=== PATIENT | female | born 2000 | race African-American/Black ===

== ENCOUNTER 2024-05-24 12:04 | Emergency (ER) | payer OTHER, SELFPAY ==
--- NOTE | 2024-05-24 12:06 | ED_ITS ---
HPI - Female Genitourinary General Chief complaint: Urogenital-Female Stated complaint: STD testing Time Seen by Provider: 05/24/24 12:06 Source: patient Mode of arrival: ambulatory Limitations: no limitations History of Present Illness HPI Narrative: Florencia is a 23-year-old female patient presenting to the clinic today with complaints vaginal discharge and vaginal irritation. She reports symptoms have been going on for approximately 1 week. Was tested on May 02 for STIs by her OBGYN and was negative. Last intercourse was that same day-May 02 after having STI testing completed. Thinks she may have used a different detergent on her underwear. States she believes she is in a heterosexual monogamous relationship. Last menstrual period was over this past week. History of chlamydia, gonorrhea, and bacterial vaginosis in the past. Related Data Allergies Allergy/AdvReac Type Severity Reaction Status Date / Time No Known Allergies Allergy Verified 05/24/24 12:34 Review of Systems Review of Systems: Pertinent positives per HPI. Patient denies any fever, chills, rash, headache, visual changes, dizziness, cough, runny nose, sore throat, shortness of breath, chest pain, palpitations, nausea, vomiting, diarrhea, constipation, abdominal pain, or any urinary issues. PMFSH Comments At the time of my signature, I reviewed and agree with the nursing past medical, surgical, social, and family history. There is no relevant family history pertinent to the patient complaint. Exam Narrative: General: Well-developed, well nourished, in no apparent distress Head: Normocephalic, atraumatic. Cardio: Regular rate and rhythm, s1 and s2 normal, no murmur appreciated. Resp: Clear to auscultation bilaterally, no rhonchi, rales, wheezing or rubs. Abdomen: Soft, pliable, bowel sounds present in all quadrants, non-tender to palpation, no CVAT tenderness. : Deferred. Patient declined exam and would like to self swab Course Course Emergency Course: Portions of this record may have been created with voice recognition software. Level of Care: Express Care Visit Vital Signs Vital signs: Vital Signs Temperature 37.1 C 05/24/24 12:21 Pulse Rate 69 05/24/24 12:21 Respiratory Rate 16 05/24/24 12:21 Blood Pressure 133/85 05/24/24 12:21 Pulse Oximetry 99 05/24/24 12:21 Oxygen Delivery Room Air 05/24/24 12:21 Temperature 37.1 C 05/24/24 12:21 Pulse Rate 69 05/24/24 12:21 Respiratory Rate 16 05/24/24 12:21 Blood Pressure 133/85 05/24/24 12:21 Pulse Oximetry 99 05/24/24 12:21 Oxygen Delivery Room Air 05/24/24 12:21 Vital signs reviewed MDM - Female Genitourinary MDM Narrative Medical decision making narrative: At the time of visit patient is resting comfortably on the exam table. Patient appears to be nontoxic. Labs: Bacterial vaginosis, genital culture, gonorrhea, chlamydia, and Trichomonas testing was sent to the lab Plan: Patient has vaginal discharge with some vaginal irritation. Offer to do pelvic exam and patient declined and would like to self swab- so she can get up on outta here and back to work will wait for any further treatment until we get results. Supportive measures were discussed with the patient and they voiced understanding discharge instructions and agrees to treatment plan. Return precautions reviewed Differential Diagnosis Differential diagnosis: Likely urinary tract infection, bacterial vaginosis, trichomoniasis, cervicitis, ovarian cyst, vaginitis, ruptured ovarian cyst, cystitis and dysmenorrhea Discharge Plan Discharge Clinical Impression: Vaginal discharge Patient Disposition: Home, Self-Care Condition: Stable Instructions: Antibiotic Form, Vaginal Discharge (ED) Additional Instructions: We have tested you for STIs in the clinic today. Testing for chlamydia, gonorrhea, Trichomonas, bacterial vaginosis, and yeast was sent to lab. Avoid any sexual activity- includes oral, anal, or vaginal intercourse until you get results back and have completed any additional recommended treatment regimens. We will contact you if testing is positive and make sure your treatment was appropriate for the type of STI. If symptoms worsen after treatment recommend reevaluation with your PCP or STI clinic Patient Language: Lithuanian Follow-up/Referrals: UNKNOWN,DOCTOR [Primary Care Provider] - Time of Disposition: 12:28 Quality NIHSS Nursing Documentation ED NIHSS nursing documentation: reviewed/agree
[2024-05-24 12:21] VITALS: BP 133/85; PULSE 69; RESP 16; TEMP 37.1; O2SAT 99
[2024-05-24 19:48] LABS: Trichomonas Vag PCR NOT DETECTED (NOT DETECTE)
[2024-05-24 20:13] LABS: Chlamydia trachomatis NOT DETECTED (NOT DETECTE); Neisseria gonorrhoeae PCR NOT DETECTED (NOT DETECTE)
[2024-05-25 15:48] LABS: Bacterial Vaginosis POSITIVE (NEGATIVE)
== END 2024-05-24 12:39 | disposition home or self-care (01) ==
PROVIDERS: Emergency Provider Nurse Practitioner Family
DX: N89.8 Other specified noninflammatory disorders of vagina (principal)
CPT/HCPCS: 81513; 87070; 87491; 87591; 87661; 99203; G0463